=== PATIENT | female | born 1975 | race African-American/Black ===

== ENCOUNTER 2016-10-08 23:49 | Emergency (ER) | payer OTHER ==
[~2016-10-08] VITALS: Ht 162.6 cm; Wt 74.8 kg
--- NOTE | ~2016-10-08 | EKG ---
[address] [place] [address] [facility] [address] ELECTROCARDIOGRAM REPORT Name: ALIVIA ERNANDEZ Room #: [facility] [id number] Admission: 10/08/16 Attend Phys: Discharge: 10/09/16 Date of : 77 Report #: [id number] THIS REPORT FOR: //name// [facility] ED Test Date: 2016-10-09 Test Time: 00:07:50 Pat Name: ALIVIA ERNANDEZ Department: Room: Gender: F [employer]atrical [employer]ouper: lillie : 1975 Requested By: Milton Riley Order Number: [id number] MD: Arvin Strickland Measurements Intervals [place] Rate: 77 P: 69 KS: 141 QRS: 11 QRSD: 127 T: 22 QT: 399 QTc: 452 Interpretive Statements Sinus rhythm Right bundle branch block No previous ECG available for comparison Electronically Signed On 10-09-2016 9:01:29 CDT by Arvin Strickland [email or web address] <ELECTRONICALLY SIGNED> By: Arvin Strickland MD, [facility] 10/09/16 0901 0007 Arvin Strickland MD, FACC /EPI
[2016-10-09 00:11] LABS: URINE BILIRUBIN NEGATIVE (Negative); URINE BLOOD 1+ (Negative); URINE COLOR YELLOW; URINE GLUCOSE-RANDOM* NEGATIVE (Negative); URINE KETONES NEGATIVE (Negative); URINE LEUKOCYTES-REFLEX NEGATIVE (Negative); URINE PROTEIN (DIPSTICK) NEGATIVE (Negative); URINE UROBILINOGEN 0.2 E.U./dl (0.2-1.0)
[2016-10-09 00:22] LABS: CASTS None Seen /LPF (None Seen); SQUAMOUS None Seen /LPF (0-3); URINE RBC 0-2 Rare /HPF (0-2); URINE WBC-REFLEX None Seen /HPF (0-5)
[2016-10-09 00:23] LABS: CRYSTALS None Seen /LPF (None Seen)
[2016-10-09 00:59] LABS: ABSOLUTE NEUTROPHILS 3.7 thou/uL (1.4-8.2); BASOPHILS 1.2 % (0.0-2.0); EOSINOPHILS 4.3 % (0.0-3.0); HEMATOCRIT 33.8 % (37.0-47.0); HEMOGLOBIN 11.6 gm/dL (12.0-15.0); LYMPHOCYTES 37.6 % (24.0-44.0); MCH 31.6 pg (26.0-34.0); MCHC 34.2 g/dL (28.0-37.0); MCV 92.3 fL (80.0-100.0); MONOCYTES 4.4 % (1.0-8.0); PLATELET COUNT 241 thou/uL (150-400); POLYS 52.5 % (36.0-66.0); RBC 3.66 mil/uL (4.20-5.00); RDW 16.6 % (10.5-14.5)
[2016-10-09 01:12] LABS: MANUAL DIFF NO
[2016-10-09 01:20] LABS: ANION GAP 10 mmol/L (7-16); BUN 10 mg/dL (7-18); CALCIUM 8.5 mg/dL (8.5-10.1); CHLORIDE 106 mmol/L (98-107); CO2 25 mmol/L (21-32); CREATININE 0.7 mg/dL (0.6-1.0); GLUCOSE 69 mg/dL (74-106); POTASSIUM 3.6 mmol/L (3.5-5.1); SODIUM 141 mmol/L (136-145)
[2016-10-09 01:27] LABS: ALBUMIN 3.1 g/dL (3.4-5.0); ALKALINE PHOSPHATASE 54 U/L (46-116); SGOT 18 U/L (15-37); SGPT 19 U/L (30-65); TOTAL BILIRUBIN 0.2 mg/dL (<0.1-1.0); TOTAL PROTEIN 6.4 g/dL (6.4-8.2); TROPONIN-I < 0.04 ng/mL (<0.04-0.07)
[2016-10-09] MEDS ORDERED: ZOFRAN ODT4 MG DISSOLVE (01:42)
[2016-10-09] MEDS ORDERED: PRILOSEC 20 MG20 MG PO (01:42)
[2016-10-09] MEDS ORDERED: NORCO 5-325 TA1 EACH PO (01:42)
[2016-10-09 02:30] VITALS: BP 120/80
== END 2016-10-09 02:42 | disposition home or self-care (01) ==
LOC: ER 23:49
PROVIDERS: Emergency Medicine
DX: K85.90 Acute pancreatitis without necrosis or infection, unspecified (principal); Z88.0 Allergy status to penicillin

== ENCOUNTER → 2019-12-13 | Outpatient (CLI) | payer OTHER ==
[~2019-12-13] MED LIST: NORCO 5-325 TA1 EACH PO; PRILOSEC 20 MG20 MG PO; ZOFRAN ODT4 MG DISSOLVE
== END ==
LOC: RAD 12-09 13:59
PROVIDERS: ATTEND Family Medicine
DX: Z12.31 Encounter for screening mammogram for malignant neoplasm of breast (principal)

== ENCOUNTER 2021-04-17 14:50 | Emergency (ER) | payer OTHER ==
[~2021-04-17] VITALS: Ht 162.6 cm; Wt 78.5 kg
[2021-04-17 14:50] VITALS: BP 115/71
[2021-04-17 15:12] LABS: URINE BILIRUBIN NEGATIVE (Negative); URINE BLOOD NEGATIVE (Negative); URINE CLARITY CLEAR; URINE COLOR YELLOW; URINE GLUCOSE-RANDOM* NEGATIVE (Negative); URINE KETONES NEGATIVE (Negative); URINE LEUKOCYTES-REFLEX NEGATIVE (Negative); URINE NITRITE-REFLEX NEGATIVE (Negative); URINE PROTEIN (DIPSTICK) NEGATIVE (Negative); URINE SPECIFIC GRAVITY >= 1.030 (1.005-1.035); URINE UROBILINOGEN 0.2 E.U./dl (0.2-1.0)
[2021-04-17] MEDS ORDERED: MEDROLDOSEPACK PO (17:07)
[2021-04-17] MEDS ORDERED: FLAGYL500 M1 PO (17:07)
== END 2021-04-17 17:05 | disposition home or self-care (01) ==
LOC: ER 14:50
PROVIDERS: Nurse Practitioner Family; Student in an Organized Health Care Education/Training Program
DX: N76.0 Acute vaginitis (principal); B96.89 Other specified bacterial agents as the cause of diseases classified elsewhere; M54.16 Radiculopathy, lumbar region; F17.210 Nicotine dependence, cigarettes, uncomplicated; F12.90 Cannabis use, unspecified, uncomplicated; Z79.899 Other long term (current) drug therapy; Z79.891 Long term (current) use of opiate analgesic; Z88.0 Allergy status to penicillin